=== PATIENT | male | born 1980 | race Caucasian/White ===

== ENCOUNTER 2018-12-18 02:25 | Emergency (ER) | payer SELFPAY ==
[~2018-12-18] VITALS: Ht 177.8 cm; Wt 88.0 kg
[2018-12-18] MEDS ORDERED: ONDANSETRON 4 MG/2 ML (SDV) Z0FRAN IVP STA (02:34)
[2018-12-18] MEDS ORDERED: fentaNYL INJECTION 100 MCG/2 ML AMP IVP STA (02:34)
--- NOTE | 2018-12-18 02:38 | ED Lower Extremity ---
General Chief Complaint: Lower Extremity Stated Complaint: POSSIBLE BROKEN LEG Source: patient History of Present Illness Date Seen by Provider: Dec 18, 2018 Time Seen by Provider: 02:25 Initial Comments 38 yo male presents by private vehicle after sliding on some mud or water in an [place] just prior to arrival. In the process of his fall he somehow injured his left leg. He has an obvious deformity to his left mid shaft of his leg and has severe pain. He thinks as he was sliding he caught his foot on a rock and that was when he injured the leg. He has intact sensation to the leg and foot. He was not able to bear any weight on the leg. He was able to get into the vehicle with the help of his friend. He has severe pain in the leg. They drove here by private vehicle for evaluation. He does state that he had been drinking some beer and states that he had about 7 [employer] [employer] 7 beers tonight. He last drank about 1 am. He last ate around 2100. He denies any other health problems and does not take any medicines on a routine basis. he has an allergy to PCN and states it causes his throat to swell up. Allergies and Home Medications Allergies Coded Allergies: Penicillins (Verified Allergy, Severe, Anaphylaxis, 12/18/18) Patient Home Medication List Home Medication List Reviewed: Yes Review of Systems Constitutional: no symptoms reported EENTM: no symptoms reported Respiratory: no symptoms reported Cardiovascular: no symptoms reported Gastrointestinal: no symptoms reported Genitourinary: no symptoms reported Musculoskeletal: see HPI Skin: no symptoms reported Psychiatric/Neurological: Anxiety Past Yltbctm-Gueuar-Dqycko Hx Past Med/Social Hx: Reviewed Nursing Past Med/Soc Hx Past Medical History Surgeries: No Physical Exam Vital Signs Vital Signs - First Documented 12/18/18 02:25 Temp 97.4 Pulse 84 Resp 20 B/P (MAP) 111/60 (77) Pulse Ox 92 O2 Delivery Room Air Capillary Refill : Height, Weight, BMI Height: '" Weight: lbs. oz. kg; BMI Method: General Appearance: WD/WN, moderate distress HEENT: PERRL/EOMI, pharynx normal Neck: non-tender, full range of motion, supple, normal inspection Cardiovascular: normal peripheral pulses, regular rate, rhythm Respiratory: chest non-tender, lungs clear, normal breath sounds, no respiratory distress, no accessory muscle use Gastrointestinal: normal bowel sounds, non tender, soft Hips: bilateral hip non-tender, bilateral hip normal inspection Legs: left leg bone tenderness, left leg deformity, left leg limited range of motion, left leg pain, left leg soft tissue tenderness, left leg swelling Neurologic/Tendon: normal sensation, normal motor functions, normal tendon functions Neurologic/Psychiatric: alert, oriented x 3, other (gait not tested due to pain and obvious deformity to extremity) Skin: normal color, warm/dry Procedures/Interventions Splinting and Joint Reduction : Location: left long leg splint Pre-Proc Neuro Vasc Exam: normal Post-Proc Neuro Vasc Exam: normal Progress After obtaining verbal informed consent from patient the nurses applied a long leg splint under my direct supervision. the pt had intact neurovascular exam both pre and post splinting. His pain was improved after splinting. he tolerated the procedure fairly well without any immediate complication. Hand-Made Type: orthoglass Splint Application: Long Leg Progress/Results/Core Measures Results/Orders Lab Results Laboratory Tests Test 12/18/18 02:33 Range/Units White Blood Count 9.2 4.3-11.0 10^3/uL Red Blood Count 5.02 4.35-5.85 10^6/uL Hemoglobin 15.8 13.3-17.7 G/DL Hematocrit 47 40-54 % Mean Corpuscular Volume 94 80-99 FL Mean Corpuscular Hemoglobin 31 25-34 PG Mean Corpuscular Hemoglobin Concent 34 32-36 G/DL Red Cell Distribution Width 12.4 10.0-14.5 % Platelet Count 237 130-400 10^3/uL Mean Platelet Volume 11.8 H 7.4-10.4 FL Neutrophils (%) (Auto) 41 L 42-75 % Lymphocytes (%) (Auto) 49 H 12-44 % Monocytes (%) (Auto) 8 0-12 % Eosinophils (%) (Auto) 1 0-10 % Basophils (%) (Auto) 1 0-10 % Neutrophils # (Auto) 3.7 1.8-7.8 X 10^3 Lymphocytes # (Auto) 4.5 H 1.0-4.0 X 10^3 Monocytes # (Auto) 0.8 0.0-1.0 X 10^3 Eosinophils # (Auto) 0.1 0.0-0.3 10^3/uL Basophils # (Auto) 0.1 0.0-0.1 10^3/uL Sodium Level 146 H 135-145 MMOL/L Potassium Level 3.9 3.6-5.0 MMOL/L Chloride Level 107 98-107 MMOL/L Carbon Dioxide Level 20 L 21-32 MMOL/L Anion Gap 19 H 5-14 MMOL/L Blood Urea Nitrogen 9 7-18 MG/DL Creatinine 0.74 0.60-1.30 MG/DL Estimat Glomerular Filtration Rate > 60 BUN/Creatinine Ratio 12 Glucose Level 100 70-105 MG/DL Calcium Level 9.2 8.5-10.1 MG/DL Corrected Calcium 8.9 8.5-10.1 MG/DL Total Bilirubin 0.4 0.1-1.0 MG/DL Aspartate Amino Transf (AST/SGOT) 22 5-34 U/L Alanine Aminotransferase (ALT/SGPT) 20 0-55 U/L Alkaline Phosphatase 63 40-136 U/L Total Protein 7.0 6.4-8.2 GM/DL Albumin 4.4 3.2-4.5 GM/DL Serum Alcohol 180 H <10 MG/DL My Orders Orders - YASH GÓMEZ MD Fentanyl Injection (Sublimaze Injection (12/18/18 02:34) Ondansetron Injection (Zofran Injectio (12/18/18 02:34) Iv/Invasive Line Insertion .IV start (12/18/18 02:35) Cbc With Automated Diff (12/18/18 02:35) Comprehensive Metabolic Panel (12/18/18 02:35) Alcohol (12/18/18 02:35) Tibia Fibula 2 View Left (12/18/18 02:38) Morphine Injection (Morphine Injection (12/18/18 02:42) Morphine Injection (Morphine Injection (12/18/18 03:41) Vital Signs/I&O 12/18/18 12/18/18 02:25 03:34 Temp 97.4 98.7 Pulse 84 83 Resp 20 18 B/P (MAP) 111/60 (77) 93/64 (74) Pulse Ox 92 93 O2 Delivery Room Air Room Air Progress Progress Note #1: Progress Note pt taken straight to xray for imaging of his Left Tib/Fib. IV was established and given Fentanyl 50 mcg with Zofran 4 mg IV for pain and nausea. Kept pt NPO since his leg appeared to be unstable for his fracture it was presumed he would require surgery tonight or this am. Progress Note #2: Progress Note On my review of his 2 view films of his left Tib/Fib he has displaced distal tibia fracture with fracture of the proximal and distal fibula and displaced fragments as well. Pt placed in long leg posterior splint for stabilizing his leg and the fractures. As he lives in the [facility] area will try to get him to a hospital. [facility] is the closest trauma center so will call to get him transferred for evaluation and treatment of his unstable distal tibia/fibula fracture. Departure Impression Primary Impression: Traumatic closed displaced fracture of distal end of tibia with fibula Qualified Codes: S82.302A - Unspecified fracture of lower end of left tibia, initial encounter for closed fracture; S82.402A - Unspecified fracture of shaft of left fibula, initial encounter for closed fracture Additional Impressions: Fall Qualified Codes: W19.XXXA - Unspecified fall, initial encounter Alcohol intoxication Qualified Codes: F10.920 - Alcohol use, unspecified with intoxication, uncomplicated Disposition: 02 XFER SHT-TRM HOSP Condition: Stable Transfer Time Spoke to Accepting Phy: 03:03 Transfer Progress Notes I spoke with Dr. Zavala in the ED about the patient since he was a fall with distal extremity fracture he will be seen in the ED initially. They will evaluate him from a trauma standpoint then have orthopedics see him. Transfer Facility: [facility] Method of Transfer: EMS Departure-Patient Inst. Referrals: NO,LOCAL PHYSICIAN (PCP) Primary Care Physician YASH GÓMEZ MD Dec 18, 2018 02:38
[2018-12-18] MEDS ORDERED: morphine INJ 10 MG/ML 1ML (SYR OR VIAL) IVP STA ×2 (02:42→03:41)
[2018-12-18 03:02] LABS: HEMATOCRIT 47 % (40-54); HEMOGLOBIN 15.8 G/DL (13.3-17.7); MEAN CORPUSCULAR HEMOGLOBIN 31 PG (25-34); MEAN CORPUSCULAR HGB CONC 34 G/DL (32-36); MEAN CORPUSCULAR VOLUME 94 FL (80-99); PLATELET COUNT 237 10^3/uL (130-400); RED CELL DISTRIBUTION WIDTH 12.4 % (10.0-14.5); WHITE BLOOD COUNT 9.2 10^3/uL (4.3-11.0)
[2018-12-18 03:03] LABS: BASOPHILS # (AUTO) 0.1 10^3/uL (0.0-0.1); BASOPHILS % (AUTO) 1 % (0-10); EOSINOPHILS # (AUTO) 0.1 10^3/uL (0.0-0.3); EOSINOPHILS % (AUTO) 1 % (0-10); LYMPHOCYTES # (AUTO) 4.5 X 10^3 (1.0-4.0); LYMPHOCYTES % (AUTO) 49 % (12-44); MEAN PLATELET VOLUME 11.8 FL (7.4-10.4); MONOCYTES # (AUTO) 0.8 X 10^3 (0.0-1.0); MONOCYTES % (AUTO) 8 % (0-12); NEUTROPHILS # (AUTO) 3.7 X 10^3 (1.8-7.8); NEUTROPHILS % (AUTO) 41 % (42-75)
[2018-12-18 03:17] LABS: SODIUM 146 MMOL/L (135-145)
[2018-12-18 03:18] LABS: ALANINE AMINOTRANSFERASE 20 U/L (0-55); ALBUMIN 4.4 GM/DL (3.2-4.5); ALKALINE PHOSPHATASE 63 U/L (40-136); BILIRUBIN,TOTAL 0.4 MG/DL (0.1-1.0); BUN/CREATININE RATIO 12; CALCIUM 9.2 MG/DL (8.5-10.1); CARBON DIOXIDE 20 MMOL/L (21-32); CHLORIDE 107 MMOL/L (98-107); CREATININE SERUM 0.74 MG/DL (0.60-1.30); GFR ESTIMATED > 60; GLUCOSE 100 MG/DL (70-105); POTASSIUM 3.9 MMOL/L (3.6-5.0)
[2018-12-18 03:34] VITALS: BP 93/64
--- NOTE | 2018-12-18 08:32 | Diagnostic Imaging Report ---
INDICATION: Injury to the left leg. Time of exam: 2:23 AM Two views of the left tibia and fibula were obtained. There is an obliquely oriented fracture of the distal tibia near the junction of the mid and distal third. There is a very slight lateral displacement of the distal tibial fracture fragment by approximately the half the width of the shaft. No angulation is seen. In addition, there is an obliquely oriented fracture of the distal fibula near the junction of the mid and distal third. There is lateral displacement of the distal fibular fragment by approximately 11 mm. No significant angulation is seen. In addition, there is an obliquely oriented fracture of the proximal fibula near the neck. No displacement or angulation is seen. Alignment at the knee and ankle appears normal. IMPRESSION: Fibular and tibial fractures, as described. Dictated by: Dictated on workstation # [id number]
== END 2018-12-18 03:45 | disposition home or self-care (01) ==
LOC: ER FS 02:32
DX: S82.232A Displaced oblique fracture of shaft of left tibia, initial encounter for closed fracture (principal); S82.432A Displaced oblique fracture of shaft of left fibula, initial encounter for closed fracture; F10.129 Alcohol abuse with intoxication, unspecified; Y90.6 Blood alcohol level of 120-199 mg/100 ml; Z88.0 Allergy status to penicillin; W19.XXXA Unspecified fall, initial encounter; Y92.89 Other specified places as the place of occurrence of the external cause
CPT/HCPCS: 29505; 36415; 73590; 80053; 80320; 85025

== ENCOUNTER 2021-04-04 17:42 | Emergency (ER) | payer BC ==
[~2021-04-04] VITALS: Ht 177 cm; Wt 90.0 kg
--- NOTE | 2021-04-04 18:48 | ED General ---
General Chief Complaint: COVID19 Suspect/Confirmed Stated Complaint: COVID+,LOW O2 Nursing Triage Note: Patient has presented to ER with cc of concern over his covid symptoms. He reports that his symptoms started yesterday with cough and tired. Today his symptoms worsened he has body aches, chills, and thinks that he may be running a fever. He did get a covid test today and he is positive. He came to ER tonight with concerns about his covid symptoms. He has been takthea ying, vitamin C, and elder mora. Source of Information: Patient History of Present Illness Date Seen by Provider: Apr 04, 2021 Time Seen by Provider: 17:49 Initial Comments 40-year-old male presenting with complaint of not feeling well for the last for 4 to 5 days. He had a Covid test done today at [facility] and was told that it was positive. He was having body aches, chills with possible fever. He has been more fatigued than usual. He states that he usually is not second been diagnosed with Covid was a surprise to him. He is vaccinated for Covid. He was concerned about being short of breath and feeling worse so he came to the ED to be checked out. He thought that his oxygen level might be low. Timing/Duration: 4-5 Days Severity: Moderate Modifying Factors: worse with Movement Associated Systoms: No Chest Pain; Cough; No Diaphoresis; Fever/Chills (Subjective), Headaches; No Loss of Appetite; Malaise; No Nausea/Vomiting, No Rash, No Seizure; Shortness of Air; No Syncope; Weakness Allergies and Home Medications Allergies Coded Allergies: Penicillins (Verified Allergy, Severe, Anaphylaxis, 12/18/18) Patient Home Medication List Home Medication List Reviewed: Yes Review of Systems Review of Systems Constitutional: see HPI EENTM: nose congestion; No ear pain, No blurred vision, No double vision, No epistaxis Respiratory: see HPI, cough, short of breath; No stridor, No wheezing Cardiovascular: No edema, No palpitations Gastrointestinal: No nausea, No vomiting Genitourinary: No decreased output, No dysuria Musculoskeletal: back pain, muscle pain Skin: No rash Psychiatric/Neurological: Headache; Denies Numbness, Denies Paresthesia Hematologic/Lymphatic: Denies Blood Clots Past Ktdrvbg-Xkpyvu-Fprkqm Hx Patient Social History Tobacco Use?: No Use of E-Cig and/or Vaping dev: No Substance use?: Yes Substance type: Marijuana Substance frequency: Once in a while Alcohol Use?: No Seasonal Allergies Seasonal Allergies: No Past Medical History Surgeries: No Respiratory: No Cardiac: No Neurological: No Genitourinary: No Gastrointestinal: No Musculoskeletal: No Endocrine: No HEENT: No Cancer: No Psychosocial: No Integumentary: No Physical Exam Vital Signs Vital Signs - First Documented 04/04/21 17:58 Temp 36.4 Pulse 96 Resp 18 B/P (MAP) 126/72 (90) Pulse Ox 98 O2 Delivery Room Air Capillary Refill : Height, Weight, BMI Height: 5'10.00" Weight: 194lbs. 0oz. 87.028633hu; 28.00 BMI Method:Stated General Appearance: No Apparent Distress, WD/WN, Anxious HEENT: PERRL/EOMI, Pharynx Normal Neck: Full Range of Motion, Normal Inspection, Non Tender, Supple Respiratory: Chest Non Tender, Lungs Clear, Normal Breath Sounds, No Accessory Muscle Use, No Respiratory Distress Cardiovascular: Regular Rate, Rhythm, Normal Peripheral Pulses Gastrointestinal: Normal Bowel Sounds, No Pulsatile Mass, Non Tender, Soft Rectal: Deferred Back: No CVA Tenderness Extremity: Normal Capillary Refill, Normal Inspection, Normal Range of Motion, No Calf Tenderness, No Pedal Edema Neurologic/Psychiatric: Alert, Oriented x3, No Motor/Sensory Deficits, sales supervisor II- XII Norm as Tested Skin: Normal Color, Warm/Dry; No Rash Progress/Results/Core Measures Suspected Sepsis SIRS Temperature: Pulse: 96 Respiratory Rate: 18 Blood Pressure 126 /72 Mean: 90 Results/Orders My Orders Orders - YASH GÓMEZ MD Chest 1 View Ap/Pa Only (04/04/21 18:34) Ekg Tracing (04/04/21 19:05) Vital Signs/I&O 04/04/21 04/04/21 17:58 19:33 Temp 36.4 Pulse 96 96 Resp 18 18 B/P (MAP) 126/72 (90) 126/72 Pulse Ox 98 98 O2 Delivery Room Air Room Air Capillary Refill : Blood Pressure Mean: 90 Progress Note : Progress Note Patient brought in from his vehicle without difficulty. His oxygen saturation was 96 to 98% on room air. He was in no distress. He came in while I was in the middle of procedures and other patients that arrived before him. An electrocardiogram was obtained as well as a chest x-ray. Both of these appeared stable without acute significant abnormalities. When I was freed up from the procedures and was able to physically evaluate him I reviewed his chest x-ray and electrocardiogram with him. His physical exam was stable with no acute significant findings concerning for sepsis or hypoxia. Reassured patient that I did not see any indication that would need him admitted to the hospital. Patient seemed reassured and voiced understanding of treating symptoms. He stated that he was using what he for a heat source where he lives so advised to try and use a humidifier to get some extra humidity when he is sleeping. Counseled on pushing fluids and rest. Use Mucinex to help break up any congestion. Continue with the vitamins he was taking to help his body fight the infection. Counseled on follow-up and return precautions. Given information for the [facility] clinic in case he needed to establish a primary care provider ECG Initial ECG Impression Date: Apr 04, 2021 Initial ECG Impression Time: 17:54 Initial ECG Rate: 91 Initial ECG Rhythm: Normal Sinus Initial ECG Comparisson: No Previous ECG Available Comment Normal sinus rhythm with a heart rate of 91 bpm. MS interval [address] elevation. QT interval 341 ms with a QTc interval 420 ms. No prior tracing available for comparison. Diagnostic Imaging Diagonstic Imaging: Xray Plain Films/CT/US/NM/MRI: chest Comments [facility] [place] NAME: STEPHANIE RUBIO [facility] REC#: [id number] PT STATUS: REG ER : 1980 PHYSICIAN: YASH GÓMEZ MD ADMIT DATE: 04/04/21/ER FS Signed Date of Exam:04/04/21 CHEST 1 VIEW AP/PA ONLY EXAMINATION: Chest 1 view HISTORY: Cough, Covid-19 COMPARISON: None available. FINDINGS: The lungs are clear without edema or pneumonia. No pleural effusion or pneumothorax. Heart size is normal. IMPRESSION: 1. Clear lungs. Dictated by: Dictated on workstation # [id number] Dict: 04/04/21 1846 Trans: 04/04/21 [facility] [id number] Interpreted by: JAY POOL MD Electronically signed by: JAY POOL MD 04/04/21 [id number] Reviewed: Reviewed by Me Departure Impression Primary Impression: Respiratory tract infection due to COVID-19 virus Disposition: 01 HOME, SELF-CARE Condition: Stable Departure-Patient Inst. Decision time for Depature: 19:16 Referrals: NO,LOCAL PHYSICIAN (PCP) Primary Care Physician [facility] Patient Instructions: COVID-19 After You Have Been Vaccinated, Recovery After COVID-19, COVID-19 ED Add. Discharge Instructions: Continue to make sure you are staying well hydrated with plenty of fluids. Use Mucinex to help with congestion and cough. When using the Mucinex make sure you are drinking plenty of water with it so it works well. If you are using any home pulse oximeter then make sure that you warm up your hands before you use it. Use a humidifier at the bedside to help with cough and congestion If you need to be seen in a clinic you could check with [facility] by calling [phone] and they can help get you in to be seen in clinic All discharge instructions reviewed with patient and/or family. Voiced understanding. YASH GÓMEZ MD Apr 04, 2021 18:48
[2021-04-04 19:33] VITALS: BP 126/72
== END 2021-04-04 19:33 | disposition home or self-care (01) ==
LOC: EDUNIT# 17:42 → ER FS 17:45
DX: U07.1 COVID-19 (principal); J98.8 Other specified respiratory disorders
CPT/HCPCS: 71045; 93005